=== PATIENT | male | born 1985 | race Native Hawaiian/Other Pacific Islander ===

== ENCOUNTER 2017-01-27 16:05 | Emergency (ER) | payer MEDICAID ==
[~2017-01-27] VITALS: Ht 160 cm; Wt 100.0 kg
[~2017-01-27 16:05] MED LIST: COLC0.6T52 PO; HYDR-4003 PO; IBUP-1827 PO; IBUP400T22 PO; IBUP800T28 PO; INDO50CA PO; PANT40TA3 PO; TRAM50TA2 PO
[2017-01-27 16:15] VITALS: BP 112/60; PULSE 107; RESP 21; O2SAT 96
--- NOTE | 2017-01-27 16:17 | ED.REPORT ---
HPI-Chest Pain Under 40 Date of Service Jan 27, 2017 ED Provider: Steve Chin DO Pt is a 32 year old male with a hx of Pericarditis with pericardial effusion presenting to the ED complaining of left chest pain onset 3 days ago. He reports that the pain is in the mid sternum and under the left breast and is exacerbated by inspiration. Denies hx of heart attack or heart surgery. Pain exacerbated by movement, and relieved by sitting up. He denies any other symptoms at this time. He reports that he has had pain like this before but that this is not as severe. He had the same type of pain in May 2016 and had a negative workup and heart and lung biopsy done at . Nursing Notes Stated Complaint: CHEST PAIN Chief Complaint: Chest Pain-Non Cardiac Nature Nursing Notes Reviewed: Yes Allergies: Coded Allergies: Penicillins (Verified Allergy, Severe, HIVES, 01/27/17) amoxicillin (Verified Allergy, Unknown, 01/27/17) naproxen (Verified Allergy, Unknown, 01/27/17) Scheduled Colchicine (Colcrys) 0.6 Mg Tablet 0.6 MG PO BID Take 0.6 mg by mouth twice per day for three months Ibuprofen (Ibuprofen) 800 Mg Tablet 800 MG PO TID Take one tablet 3 times per day for 7 days then move to lower dose (400 mg) Ibuprofen (Ibuprofen) 400 Mg Tablet 400 MG PO TID After you have finished one week of the 800 mg tablets, take one of these 400 mg tablets three times per day for one week Ibuprofen (Ibuprofen) 400 Mg Tablet 400 MG PO BID Once you have finished the other two prescriptions for Ibuprofen, take one of these tablets twice per day for 2 weeks Pantoprazole (Pantoprazole DR) 40 Mg Tablet.dr 40 MG PO BIDAC Scheduled PRN Hydrocodone-Acetaminophen 5-325 mg (Hydrocodone-Acetaminophen 5-325 mg) 1 Each Tablet 1 TABLET PO Q4H PRN PRN For Pain Ibuprofen (Ibuprofen) 600 Mg Tablet 600 MG PO QID PRN PRN For Pain Indomethacin (Indomethacin) 50 Mg Capsule 50 MG PO TID PRN PRN For Pain Tramadol (Tramadol) 50 Mg Tablet 100 MG PO Q6H PRN PRN For Pain General Time Seen by MD: 16:15 Chief Complaint Chest pain Hx Obtained From: Patient Arrived By: Walk-in Sudden in Onset?: No Onset Occurred: 3 days ago Symptom Duration: Since onset Location: : Chest left Quality: Painful Severity: Current: No pain currently Severity: Maximum: Mild Recent Healthcare: No recent doctor visit, No recent hospitalization Similar Sx Previous: Yes Past Medical History Past Medical History Reported history of hepatitis empyema (admitted 02/25/16) Pericarditis with pericardial effusion, unclear etiology; question of rheumatic fever (admitted 03/13/16) Suspected/Possible Pneumonia (admitted 03/13/16) Hyperglycemia with evidence of pre-diabetes L pleural effusion Past Surgical History Reports: Appendectomy Smoking History Former Smoker Social History Alcohol Use: Denies alcohol use Drug Use: Denies drug use Other Social History: Good social support, , Local resident Ambulatory Status Independent Review of Systems Constitutional: Denies: Weakness - generalized Cardiovascular: Reports: Chest pain GI: Denies: Abdominal pain, Diarrhea, Vomiting Neurologic: Denies: Headache Complete sys rev & neg: except as marked. Physical Exam Initial Vital Signs Vital Signs (First) Date Time Temp Pulse Resp B/P Pulse Ox O2 Delivery O2 Flow Rate FiO2 01/27/17 16:15 36.8 107 21 112/60 96 Room Air 01/27/17 18:02 4 Initial VS: Reviewed Head / Eyes: Atraumatic, Normocephalic, PERRL ENT: Mucous membranes moist, Conjunctiva normal, No scleral icterus Abdomen / GI: Soft, Non-tender, No guarding, No rebound, No distention Extremities: Vascular intact, Neuro intact, No swelling, No tenderness Skin: Warm, Dry, No cyanosis Neurologic: Alert, Oriented, Nonfocal Psychiatric: Mood/affect normal, Behavior normal, Normal thought content General/Constitutional: Awake, Alert, Well appearing Respiratory / Chest: Breath sounds NL, Breath sounds = bilat, No respiratory distress, No rales, No rhonchi, No wheezing, No chest tenderness Cardiovascular: Regular rhythm, Heart sounds NL, No murmurs Heart Rate / Rhythm: Positive: Tachycardia Interpretation & Diagnostics Lab Results Interpretation Result Diagram: 01/27/17 1655 01/27/17 1655 Test 01/27/17 16:55 White Blood Count 15.3th/mm3 (3.8-10.1) Red Blood Count 5.47mil/mm3 (4.40-5.80) Hemoglobin 14.5g/dL (13.8-17.2) Hematocrit 43.1% (41.0-50.0) Mean Corpuscular Volume 78.8fL (81-100) Mean Corpuscular Hemoglobin 26.5pg (27.0-35.0) Mean Corpuscular Hemoglobin Concent 33.6% (32.0-37.0) Red Cell Distribution Width 14.3% (12.3-15.4) Platelet Count 334bil/L (150-400) Neutrophils (%) (Auto) 75.8% (40-74) Lymphocytes (%) (Auto) 14.1% (14-46) Monocytes (%) (Auto) 6.3% (4-12) Eosinophils (%) (Auto) 3.2% (0-5) Basophils (%) (Auto) 0.3% (0-3) D-Dimer < 0.50mg/L FEU (<0.50) Sodium Level 133mEq/L (134-144) Potassium Level 4.0mEq/L (3.5-5.2) Chloride Level 97mEq/L (97-108) Carbon Dioxide Level 23mmol/L (18-29) Blood Urea Nitrogen 10mg/dL (6-20) Creatinine 1.08mg/dL (0.76-1.27) Estimat Glomerular Filtration Rate 83mL/min (>59) Glucose Level 142mg/dL (60-99) Calcium Level 8.8mg/dL (8.5-10.1) Magnesium Level 1.9mg/dL (1.6-2.6) Total Bilirubin 0.5mg/dL (0.0-1.2) Aspartate Amino Transf (AST/SGOT) 85U/L (0-50) Alanine Aminotransferase (ALT/SGPT) 80U/L (0-44) Alkaline Phosphatase 137U/L (25-150) Troponin T < 0.010ug/L (0.0-0.011) Total Protein 8.6g/dL (6.4-8.4) Albumin 3.5g/dL (3.4-5.0) ECG Interpretation ECG Interpretation: Sinus tachycardia. Some mild ST elevation in 1, AVL and V2. No other specific changes. Time: 16:25 Interpreted by: ED physician X-Ray Chest Interpretation Chest Xray Interpretation: IMPRESSION: Mildly reduced inspiratory volume, linear atelectasis or scarring left lung base but no sign of pneumonia and no definite source of chest pain. Dictated by: Sonido Foley M.D. on 01/27/2017 at 18:11 View: AP & lat Interpretation / Wet Read by: Interpret - Radiologist CT Chest Interpretation IMPRESSION: Reduced inspiratory volume bilaterally, mild linear stranding left lung base near the lingular segment. No acute disease. Source of chest pain is not found, no pulmonary embolus suspected. Dictated by: Sonido Foley M.D. on 01/27/2017 at 18:13 Study type: Chest CT w contrast Interpretation / Wet Read by: Interpret - Radiologist Re-Eval/Medical Decision Med Decision/Clinical Course Patient presents with 3 days of ongoing full clear and reproducible chest wall pain is worse with bending and twisting. Much more resource intensive workup was performed after reviewing his past medical history and finding that he had a pericardial and pleural effusion of unclear significance, the patient was also slightly transferred to [facility] for this. He relates that no one could ever seem to identify the cause of his symptoms. On review he has had leukocytosis ongoing for 1 year. Chest x-ray and CT failed to show a focal pneumonia, cardiomegaly or pleural effusion. His troponin is negative his EKG is unchanged from prior, his d-dimer is negative. It is unclear exactly what the etiology of his previous symptoms were and how this relates to symptoms today however this does not seem to be acute infection, pneumonia, pericarditis, pleural effusion, pulmonary embolism or other life-threatening pathology. Will discharge on indomethacin and colchicine. Recommend close follow-up with infectious disease, rheumatology, and primary care. Return and follow-up precautions given. Re-Evaluation/Progress #1: Time of Eval: 18:19 Patient Status: Condition improved Re-Evaluation/Progress Note: Pt feeling better. Heart rate has come down. Doesn't have acute coronary syndrome or PE. Re-Evaluation/Progress #2: Time of Eval: 18:27 Patient Status: Condition improved Re-Evaluation/Progress Note: Discussed consultation with Dr. Lai and plan for discharge. Consultation : Referral / Consult Name: Edouard Lai MD Requested Call at: 18:21 Call Returned at: 18:22 Mounter Smoking Pipe: Agrees with plan Note: Infectious Diseases. With all the workup they did they never found an infectious source, pt is okay to be discharged and follow up with him. Counseled Regarding: Diagnosis, Lab results, Need for follow-up, When/why to return to ED Discharge & Departure Primary Impression: Chest pain, pleuritic Disposition: Home Discharge Condition All VS Reviewed: Yes Condition: Improved Additional Instructions: Your pain seems to be on your chest wall. Take indomethacin and colchicine as previously prescribed. Follow-up with rheumatology and infectious disease as well as a new primary care doctor. Return to the ER if you develop a high fever , severe trouble breathing, or other concerns Referrals: NOPCP (PCP) Niaibe Attestation Portions of this note were transcribed by Gabrielle Chase. I, Dr. Chin personally performed the history, physical exam and medical decision-making; I reviewed and confirmed the accuracy of the information in the transcribed note. Signed by: Elma Dial, 01/27/2017 at 1820. Steve Chin DO Jan 27, 2017 16:16 GABRIELLE CHASE Jan 27, 2017 16:36
[2017-01-27 17:12] LABS: BASOPHILS % (AUTO) 0.3 % (0-3); EOSINOPHILS % (AUTO) 3.2 % (0-5); MONOCYTES % (AUTO) 6.3 % (4-12); Mean Corpuscular Hemoglobin 26.5 pg (27.0-35.0); Mean Corpuscular Volume 78.8 fL (81-100); NEUTROPHILS % (AUTO) 75.8 % (40-74); Platelet Count 334 bil/L (150-400)
[2017-01-27 17:43] LABS: TROPONIN T < 0.010 ug/L (0.0-0.011)
[2017-01-27 17:45] LABS: Magnesium 1.9 mg/dL (1.6-2.6)
[2017-01-27 18:02] VITALS: BP 122/79; PULSE 97; RESP 21; O2SAT 99
--- NOTE | 2017-01-27 18:13 | DRSVH ---
PROCEDURE: X-RAY CHEST, TWO VIEWS ([id number]) INDICATIONS: chest pain TECHNIQUE: 2 views of the chest were acquired. COMPARISON: [facility], CR, XR CHEST 2VW, 06/14/2016, 5:40. FINDINGS: Surgical changes and devices: None. Lungs and pleura: No pleural effusions or pneumothorax. Lungs are clear except for mild stranding a t the left lung base, very similar if not identical to that previously present in May of 2016.. Mediastinum: Mediastinal contours are normal. Heart size is normal. Bones and chest wall: No suspicious bony abnormalities. Soft tissues appear unremarkable. IMPRESSION: Mildly reduced inspiratory volume, linear atelectasis or scarring left lung base but no sign of pneumonia and no definite source of chest pain. Dictated by: Sonido Foley M.D. on 01/27/2017 at 18:11 Approved by: Sonido Foley M.D. on 01/27/2017 at 18:12
--- NOTE | 2017-01-27 18:16 | DRSVH ---
PROCEDURE: CT CHEST WITH CONTRAST ([id number]) INDICATIONS: chest pain, elevated wbc, h/o empyema TECHNIQUE: After the administration of intravenous contrast, 5 mm thick sections acquired from the pulmonary api shante to the posterior costophrenic angles. 7 mm thick coronal and sagittal MIP reformats were acquire d. For radiation dose reduction, the following was used: automated exposure control, adjustment of mA and/or kV according to patient size. COMPARISON: [facility], CR, XR CHEST 2VW, 01/27/2017, 16:42. FINDINGS: Image quality: Excellent. Lungs and pleura: No acute air space opacities. No pleural effusions or pneumothorax. Central and peripheral airways are patent and normal in caliber. Mediastinum: Heart size is normal. No pericardial effusion. No mediastinal or hilar adenopathy by size criteria. Thoracic aorta and central pulmonary arteries are normal in size. Esophagus is cynthia l in caliber. No hiatal hernia. Bones and chest wall: No suspicious bony lesions. No vertebral body compression fractures. No axil wendy or supraclavicular adenopathy by size criteria. Thyroid gland appears normal where well visuali zed. Abdomen: Visualized upper abdominal solid organs appear normal. Upper abdominal bowel loops are nor mal in caliber. IMPRESSION: Reduced inspiratory volume bilaterally, mild linear stranding left lung base near the li ngular segment. No acute disease. Source of chest pain is not found, no pulmonary embolus suspected . Dictated by: Sonido Foley M.D. on 01/27/2017 at 18:13 Approved by: Sonido Foley M.D. on 01/27/2017 at 18:15
[2017-01-27] MEDS ORDERED: Indomethacin 25 mg Capsule PO ONE (18:30)
[2017-01-27] MEDS ORDERED: COLC0.6C3 PO (18:39)
[2017-01-27] MEDS ORDERED: INDO25CA PO (18:39)
[2017-01-27 18:54] VITALS: BP 122/79; PULSE 97; RESP 21; O2SAT 99
== END 2017-01-27 18:56 | disposition home or self-care (01) ==
LOC: SED 16:05
DX: R07.81 Pleurodynia (principal); Z87.891 Personal history of nicotine dependence; Z88.0 Allergy status to penicillin; Z88.8 Allergy status to other drugs, medicaments and biological substances
CPT/HCPCS: 36415; 71020; 71260; 80053; 83735; 84484; 85025; 85378; 93005; 99285; Q9967